=== PATIENT | male | born 1995 | race American Indian/Alaskan Native ===

== ENCOUNTER 2019-06-16 07:41 | Emergency (ER) | payer OTHER ==
[2019-06-16 08:02] VITALS: BP 132/70
--- NOTE | 2019-06-16 10:15 | XRay Report ---
CHEST 2 VIEWS INDICATION / CLINICAL INFORMATION: dyspnea/no fever/cough. COMPARISON: None available. FINDINGS: SUPPORT DEVICES: None. HEART / MEDIASTINUM: No significant abnormality. LUNGS / PLEURA: No significant pulmonary or pleural abnormality. No pneumothorax. ADDITIONAL FINDINGS: No significant additional findings. IMPRESSION: 1. No acute findings. Signer Name: Jason Flanagan MD Signed: 06/16/2019 10:11 AM Workstation Name: [id number]
--- NOTE | 2019-06-16 10:36 | Emergency Department Report ---
Minor Respiratory - HPI Chief Complaint: Upper Respiratory Infection Stated Complaint: CHEST PAIN Time Seen by Provider: 06/16/19 09:15 Duration: yesterday Pain Location: Chest Severity: mild Minor Respiratory: Yes Able to Tolerate Fluids, Yes Cough, Yes Chest Pain (more chest tightness), Yes Shortness of Breath, No Rhinorrhea, No Sore Throat, No Ear Pain, No Sick Contacts, No Hemoptysis, No Fever Other History: 23-year-old male with no significant past medical history presents to the ER today complaining of nonproductive cough with chest tightness and some shortness of breath which he states started last night but got worse this morning. He reports associated body aches, and nasal congestion but he denies any fever, he denies any chills, he denies any wheezing, he denies any obvious contact with anyone sick, or known COVID contacts and denies any recent travel. He reports no GI or symptoms. ED Review of Systems ROS: Stated complaint: CHEST PAIN Other details as noted in HPI Constitutional: denies: chills, diaphoresis, fever, weakness ENT: congestion. denies: ear pain, throat pain, dental pain, epistaxis Respiratory: cough, shortness of breath. denies: orthopnea, SOB with exertion, SOB at rest, stridor, wheezing Cardiovascular: other (diffuse chest tightness). denies: palpitations, dyspnea on exertion, edema, syncope Gastrointestinal: denies: abdominal pain, nausea, vomiting, diarrhea Genitourinary: denies: urgency, dysuria, frequency, hematuria Musculoskeletal: myalgia. denies: back pain, joint swelling, arthralgia Neurological: denies: headache, weakness Psychiatric: denies: anxiety, depression ED Past Medical Hx - Past Medical History Previous Medical History?: No - Surgical History Past Surgical History?: No - Social History Smoking Status: Never Smoker Substance Use Type: None - Medications Home Medications: Home Medications Medication Instructions Recorded Confirmed Last Taken Type Albuterol INH(or & Nicu Only) 2 puff IH QID PRN #8.5 gram 06/16/19 Unknown Rx [ProAir HFA Inhaler] Brompheniramine/Pseudoephed/Dm 5 - 10 ml PO Q4HR PRN #120 syrup 06/16/19 Unknown Rx [Bromfed Dm Cough Syrup] Fexofenadine HCl [Cheryl Allergy] 180 mg PO DAILY #30 tablet 06/16/19 Unknown Rx Minor Respiratory Exam - Exam General: Vital signs noted. No distress. Alert and acting appropriately. HEENT: Yes Pharyngeal Erythema (mild ), Yes Moist Mucous Membranes, No Pharyngeal Exudates, No Rhinorrhea, No Conjuctival Injection, No Frontal Tenderness, No Maxillary Tenderness Ear: Neither TM Bulge, Neither TM Erythema, Neither EAC Pain, Neither EAC Discharge Neck: No Adenopathy Lungs: Yes Good Air Exchange, No Wheezes, No Ronchi, No Stridor, No Cough, No Labored Respirations, No Retractions, No Use of Accessory Muscles, No Other Abnormal Lung Sounds Heart: No Regular, No Murmur Abdomen: No Tenderness, No Peritoneal Signs, No Normal Bowel Sounds Skin: No Rash, No Edema Neurologic: Alert and oriented, no deficits. Musculoskeletal: Unremarkable. ED Course Vital Signs 06/16/19 08:01 Temperature 97.9 F Pulse Rate 79 Respiratory 16 Rate Blood Pressure 132/70 O2 Sat by Pulse 97 Oximetry ED Medical Decision Making - Medical Decision Making 23-year-old male with no significant past medical history presents to the ER today complaining of chest tightness, dry cough, shortness of breath, and some nasal congestion which started yesterday. Patient denies any recent travel, and denies any obvious ill contacts and denies any obvious contact with COVID. The patient is well-appearing, he is afebrile with normal vital signs, he is not in any acute respiratory distress, he is not toxic, he appears well-hydrated, and he is neurologically intact. CXR negative for anything acute. Flu screen negative. Patient history, exam, diagnostic testing and current condition does not demonstrate any infectious process such as meningitis, severe pneumonia, retropharyngeal abscess, epiglottitis, sepsis or other bacterial infection requiring further testing, treatment, or admission at this time. Suspect URI/mild bronchitis. Patient reports that the main reason he came in was to get tested for COVID because he was told that he come here to get check. He states he lives with his parents who are elderly. Informed patient that the ER is doing testing on patients with mild symptoms who are medically stable which in his case he is. If he wants testing recommend f/u with PCP or health Department. But informed him that CDC is recommend quarantine and home tx for patient with mild symptoms who suspect they may have it. So recommended to him he self quarantine at home, monitor his symptoms, f/u with PCP or health department but if his symptoms worsens to return to ED. Patient stable at time of d/c. Critical care attestation.: If time is entered above; I have spent that time in minutes in the direct care of this critically ill patient, excluding procedure time. ED Disposition Clinical Impression: URI (upper respiratory infection), Bronchitis Disposition: DC- TO HOME OR SELFCARE Is pt being admited?: No Does the pt Need Aspirin: No Condition: Stable Instructions: Upper Respiratory Infection (ED), Acute Bronchitis (ED) Additional Instructions: Recommend lots of hand wash, recommend lots of fluids, tylenol for pain or fever. recommend self quarantine at home for 14 days, continue to monitor symptoms, if you develop fever (100.5 or higher) and worsening symptoms return to ED. Recommend call [facility] health department or PCP if you want to find out about COVID testing. Prescriptions: Fexofenadine HCl [Cheryl Allergy] 180 mg PO DAILY #30 tablet Brompheniramine/Pseudoephed/Dm [Bromfed Dm Cough Syrup] 5 - 10 ml PO Q4HR PRN #120 syrup PRN Reason: Cough Albuterol INH(or & Nicu Only) [ProAir HFA Inhaler] 2 puff IH QID PRN #8.5 gram PRN Reason: Shortness Of Breath Referrals: [facility] [Primary Care Provider] - 3-5 Days Forms: Work/School Release Form(ED) Time of Disposition: 11:20
== END 2019-06-16 11:28 | disposition home or self-care (01) ==
LOC: ED 07:41
DX: J40 Bronchitis, not specified as acute or chronic (principal); J06.9 Acute upper respiratory infection, unspecified
CPT/HCPCS: 71046; 87400

== ENCOUNTER 2020-04-01 17:35 | Emergency (ER) | payer OTHER ==
[2020-04-01 17:48] VITALS: BP 149/85
[2020-04-01] MEDS ORDERED: dexAMETHasone 4 MG/ML VIAL IM ONE (17:50)
[2020-04-01] MEDS ORDERED: IBUPROFEN 600 MG TAB PO ONE (17:50)
--- NOTE | 2020-04-01 18:20 | Emergency Department Report ---
ED ENT HPI - General Chief complaint: Sore Throat Stated complaint: STREP THROAT Time Seen by Provider: 04/01/20 17:46 Source: patient Mode of arrival: Ambulatory Limitations: No Limitations - History of Present Illness Initial comments: Patient is a 24-year-old male presents emergency room complaints of a sore throat that began 2 days ago. He has associated pain with swallowing but is still able to swallow and tolerate p.o. intake and his secretions. he has associated chills, generalized weakness, fever, and generalized body aches. he states his pain is worse with coughing and swallowing. he denies any productive cough, diarrhea, SOB, CP, difficulty swallowing. no PMHx. no allergies to meds. no sick contacts. no recent travel. he states he had this several years ago and was diagnosed with strep throat. - Related Data Previous Rx's Medication Instructions Recorded Last Taken Type Albuterol Mdi (or & Nicu Only) 2 puff IH QID PRN #8.5 gram 06/16/19 Unknown Rx [ProAir HFA Inhaler] Brompheniramine/Pseudoephed/Dm 5 - 10 ml PO Q4HR PRN #120 syrup 06/16/19 Unknown Rx [Bromfed Dm Cough Syrup] Fexofenadine HCl [Cheryl Allergy] 180 mg PO DAILY #30 tablet 06/16/19 Unknown Rx Amoxicillin/Potassium Clav 1 each PO BID 10 Days #20 tablet 04/01/20 Unknown Rx [Augmentin 875-125 Tablet] Allergies Allergy/AdvReac Type Severity Reaction Status Date / Time No Known Allergies Allergy Verified 04/01/20 17:44 ED Dental HPI - General Chief complaint: Sore Throat Stated complaint: STREP THROAT Time Seen by Provider: 04/01/20 17:46 Source: patient Mode of arrival: Ambulatory Limitations: No Limitations - Related Data Previous Rx's Medication Instructions Recorded Last Taken Type Albuterol Mdi (or & Nicu Only) 2 puff IH QID PRN #8.5 gram 06/16/19 Unknown Rx [ProAir HFA Inhaler] Brompheniramine/Pseudoephed/Dm 5 - 10 ml PO Q4HR PRN #120 syrup 06/16/19 Unknown Rx [Bromfed Dm Cough Syrup] Fexofenadine HCl [Cheryl Allergy] 180 mg PO DAILY #30 tablet 06/16/19 Unknown Rx Amoxicillin/Potassium Clav 1 each PO BID 10 Days #20 tablet 04/01/20 Unknown Rx [Augmentin 875-125 Tablet] Allergies Allergy/AdvReac Type Severity Reaction Status Date / Time No Known Allergies Allergy Verified 04/01/20 17:44 ED Review of Systems ROS: Stated complaint: STREP THROAT Other details as noted in HPI Comment: All other systems reviewed and negative ED Past Medical Hx - Past Medical History Previous Medical History?: No - Surgical History Past Surgical History?: No - Social History Smoking Status: Never Smoker Substance Use Type: None - Medications Home Medications: Home Medications Medication Instructions Recorded Confirmed Last Taken Type Albuterol Mdi (or & Nicu Only) 2 puff IH QID PRN #8.5 gram 06/16/19 Unknown Rx [ProAir HFA Inhaler] Brompheniramine/Pseudoephed/Dm 5 - 10 ml PO Q4HR PRN #120 syrup 06/16/19 Unknown Rx [Bromfed Dm Cough Syrup] Fexofenadine HCl [Cheryl Allergy] 180 mg PO DAILY #30 tablet 06/16/19 Unknown Rx Amoxicillin/Potassium Clav 1 each PO BID 10 Days #20 tablet 04/01/20 Unknown Rx [Augmentin 875-125 Tablet] ED Physical Exam - General Limitations: No Limitations General appearance: alert, in no apparent distress - Head Head exam: Present: atraumatic, normocephalic - Eye Eye exam: Present: normal appearance - ENT ENT exam: Present: mucous membranes moist, other (posterior oropharynx erythema with small red spots in the oropharynx, there are small exudates, mild tonsillar hypertrophy, uvula is midline, no uvular edema or deviation, no trismus, no tongue elevation, no submandibular edema) - Respiratory Respiratory exam: Present: normal lung sounds bilaterally. Absent: respiratory distress, wheezes, rales, rhonchi, stridor, chest wall tenderness, accessory muscle use, decreased breath sounds, prolonged expiratory - Cardiovascular Cardiovascular Exam: Present: regular rate, normal rhythm, normal heart sounds. Absent: systolic murmur, diastolic murmur, rubs, gallop - Neurological Exam Neurological exam: Present: alert, oriented X3 - Psychiatric Psychiatric exam: Present: normal affect, normal mood - Skin Skin exam: Present: warm, dry, intact ED Course Vital Signs 01/07/21 01/07/21 17:47 19:04 Temperature 101.6 F H 100.6 F H Pulse Rate 101 H Respiratory 20 Rate Blood Pressure 149/85 O2 Sat by Pulse 95 Oximetry ED Medical Decision Making - Lab Data Vital Signs 04/01/20 04/01/20 17:47 19:04 Temperature 101.6 F H 100.6 F H Pulse Rate 101 H Respiratory 20 Rate Blood Pressure 149/85 O2 Sat by Pulse 95 Oximetry - Medical Decision Making Patient is a 24-year-old male presents emergency room complaints of a sore throat that began 2 days ago. He has associated pain with swallowing but is still able to swallow and tolerate p.o. intake and his secretions. he has associated chills, generalized weakness, fever, and generalized body aches. he states his pain is worse with coughing and swallowing. he denies any productive cough, diarrhea, SOB, CP, difficulty swallowing. no PMHx. no allergies to meds. no sick contacts. no recent travel. he states he had this several years ago and was diagnosed with strep throat. Initial vitals with fever which improved upon ibuprofen administration. On exam:posterior oropharynx erythema with small red spots in the oropharynx, there are small exudates, mild tonsillar hypertrophy, uvula is midline, no uvular edema or deviation, no trismus, no tongue elevation, no submandibular edema. Examination is consistent with pharyngitis likely from strep. Patient given dexamethasone IM while in the emergency department and symptoms improved. No clinical signs of peritonsillar abscess at this time. Patient given prescription for Augmentin. Advised patient Please take medication as prescribed to completion. Increase your water intake. Gargle with warm salt water 3-5 times a day. May use throat spray or [id number] throat lozenges. Throw away your toothbrush. Do not drink after others or allow anyone to drink after you. Follow-up with a primary care doctor. Alternate Tylenol and then ibuprofen every 6-8 hours as needed for fever or pain. Return to emergency room for any new or worsening symptoms. Critical care attestation.: If time is entered above; I have spent that time in minutes in the direct care of this critically ill patient, excluding procedure time. ED Disposition Clinical Impression: Pharyngitis Qualifiers: Pharyngitis/tonsillitis etiology: unspecified etiology Qualified Code(s): J02.9 - Acute pharyngitis, unspecified Disposition: DC-01 TO HOME OR SELFCARE Is pt being admited?: No Does the pt Need Aspirin: No Condition: Stable Instructions: Sore Throat, [id number] Additional Instructions: Please take medication as prescribed to completion. Increase your water intake. Gargle with warm salt water 3-5 times a day. May use throat spray or [id number] throat lozenges. Throw away your toothbrush. Do not drink after others or allow anyone to drink after you. Follow-up with a primary care doctor. Alternate Tylenol and then ibuprofen every 6-8 hours as needed for fever or pain. Return to emergency room for any new or worsening symptoms. Prescriptions: Amoxicillin/Potassium Clav [Augmentin 875-125 Tablet] 1 each PO BID 10 Days #20 tablet Referrals: your, primary care doctor [Other] - 2-3 Days Time of Disposition: 18:15 Print Language: MAORI
== END 2020-04-01 19:05 | disposition home or self-care (01) ==
LOC: ED 17:35
DX: J02.9 Acute pharyngitis, unspecified (principal); Z79.2 Long term (current) use of antibiotics; Z79.899 Other long term (current) drug therapy
CPT/HCPCS: 96372; 99282; J1100

== ENCOUNTER 2021-06-11 16:27 | Emergency (ER) | payer OTHER ==
[2021-06-11 16:36] VITALS: BP 129/76
--- NOTE | 2021-06-11 18:35 | Emergency Department Report ---
ED General Adult HPI - General Chief complaint: Sore Throat Stated complaint: SORE THROAT Time Seen by Provider: 06/11/21 16:47 Source: patient Mode of arrival: Ambulatory Limitations: No Limitations - History of Present Illness Initial comments: 25-year-old -[place] male patient presents with complaints of sore throat x2 days. He states pain worsens with swallowing and rates pain as a 7/10 in severity. Patient states a history of strep and that this pain feels similar. No other past medical history or known drug allergies per patient. N aproxen helps somewhat with the pain. He denies any fever/chills/sweats, chest pain, cough, or shortness of breath - Related Data Previous Rx's Medication Instructions Recorded Last Taken Type Albuterol Mdi (or & Nicu Only) 2 puff IH QID PRN #8.5 gram 06/16/19 Unknown Rx [ProAir HFA Inhaler] Brompheniramine/Pseudoephed/Dm 5 - 10 ml PO Q4HR PRN #120 syrup 06/16/19 Unknown Rx [Bromfed Dm Cough Syrup] Fexofenadine HCl [Cheryl Allergy] 180 mg PO DAILY #30 tablet 06/16/19 Unknown Rx Amoxicillin/Potassium Clav 1 each PO BID 10 Days #20 tablet 04/01/20 Unknown Rx [Augmentin 875-125 Tablet] Amoxicillin/Potassium Clav 1 each PO BID 10 Days #20 tab 06/11/21 Unknown Rx [Augmentin 875-125 Tablet] Allergies Allergy/AdvReac Type Severity Reaction Status Date / Time No Known Allergies Allergy Verified 04/01/20 17:44 ED Review of Systems ROS: Stated complaint: SORE THROAT Other details as noted in HPI Constitutional: denies: chills, fever, malaise ENT: throat pain Respiratory: denies: cough Cardiovascular: denies: chest pain Hematological/Lymphatic: denies: swollen glands ED Past Medical Hx - Social History Smoking Status: Never Smoker Substance Use Type: None - Medications Home Medications: Home Medications Medication Instructions Recorded Confirmed Last Taken Type Albuterol Mdi (or & Nicu Only) 2 puff IH QID PRN #8.5 gram 06/16/19 Unknown Rx [ProAir HFA Inhaler] Brompheniramine/Pseudoephed/Dm 5 - 10 ml PO Q4HR PRN #120 syrup 06/16/19 Unknown Rx [Bromfed Dm Cough Syrup] Fexofenadine HCl [Cheryl Allergy] 180 mg PO DAILY #30 tablet 06/16/19 Unknown Rx Amoxicillin/Potassium Clav 1 each PO BID 10 Days #20 tablet 04/01/20 Unknown Rx [Augmentin 875-125 Tablet] Amoxicillin/Potassium Clav 1 each PO BID 10 Days #20 tab 06/11/21 Unknown Rx [Augmentin 875-125 Tablet] ED Physical Exam - General Limitations: No Limitations General appearance: alert, in no apparent distress, obese - Head Head exam: Present: atraumatic, normocephalic - Expanded ENT Exam Expanded Mouth exam: Absent: drooling, trismus Throat exam: Positive: tonsillar erythema (Bilateral), tonsillomegaly (Bilateral), tonsillar exudate (Bilateral), other (Uvula is midline). Negative: R peritonsillar mass, L peritonsillar mass - Respiratory Respiratory exam: Absent: respiratory distress - Cardiovascular Cardiovascular Exam: Present: regular rate - Neurological Exam Neurological exam: Present: alert, oriented X3 - Psychiatric Psychiatric exam: Present: normal affect, normal mood - Skin Skin exam: Present: warm, dry, intact, normal color. Absent: rash ED Course Vital Signs 06/11/21 16:35 Temperature 98.7 F Pulse Rate 93 H Respiratory 18 Rate Blood Pressure 129/76 O2 Sat by Pulse 99 Oximetry ED Medical Decision Making - Medical Decision Making Patient complains of swelling and pain beneath the chin x1 week. Patient states his symptoms started after he got a haircut believes he has an ingrown hair. He denies any fever/chills/sweats or dysphagia. NKDA per patient and no past medical history per patient. Patient rates his pain as a 5/10 in severity. He admits to mild purulent drainage Rapid strep is negative, however on exam patient appears to have bacterial pharyngitis. Will treat with Augmentin. Recommend follow-up with PCP in 3 to 5 days. Vitals are normal, he is well-appearing, he is stable for discharge home. Strict return precautions were discussed in detail with patient who verbalized understanding Critical care attestation.: If time is entered above; I have spent that time in minutes in the direct care of this critically ill patient, excluding procedure time. ED Disposition Clinical Impression: Acute bacterial pharyngitis Disposition: HOME / SELF CARE / HOMELESS Is pt being admited?: No Condition: Stable Instructions: Pharyngitis, [id number] Prescriptions: Amoxicillin/Potassium Clav [Augmentin 875-125 Tablet] 1 each PO BID 10 Days #20 tab Referrals: PRIMARY CARE,MD [Primary Care Provider] - 3-5 Days Forms: Work/School Release Form(ED)
== END 2021-06-11 18:57 | disposition home or self-care (01) ==
LOC: ED 16:27
DX: J02.8 Acute pharyngitis due to other specified organisms (principal)
CPT/HCPCS: 87116; 87430; 99283